=== PATIENT | female | born 2000 | race Two or more races ===

== ENCOUNTER 2023-12-16 12:22 | Emergency (ER) | payer SELFPAY ==
[~2023-12-16] VITALS: Ht 167.6 cm; Wt 58.2 kg
[2023-12-16 12:37] VITALS: BP 134/86; PULSE 98; RESP 18; TEMP 98.4
[2023-12-16] MEDS ORDERED: LEVE10006 PO (12:48)
[2023-12-16] MEDS ORDERED: BUSP15TA3 PO (12:48)
[2023-12-16] MEDS ORDERED: HYDR-4527 PO (12:48)
[2023-12-16 13:56] LABS: ALCOHOL, URINE DRUG SCREEN POSITIVE (NEGATIVE); AMPHET/METH SCREEN,URINE NEGATIVE (NEGATIVE); BARBITURATE SCREEN, URINE NEGATIVE (NEGATIVE); BENZODIAZEPINES SCREEN,URINE NEGATIVE (NEGATIVE); CANNABINOID SCREEN,URINE NEGATIVE (NEGATIVE); COCAINE SCREEN,URINE NEGATIVE (NEGATIVE); METHADONE SCREEN, URINE NEGATIVE (NEGATIVE); OPIATE SCREEN,URINE NEGATIVE (NEGATIVE); PHENCYCLIDINE SCREEN,URINE NEGATIVE (NEGATIVE)
[2023-12-16] MEDS: LevETIRAcetam 1,000 MG in DEXTROSE 5%-WATER 100 ML IV ONE (14:31)
[2023-12-16 14:41] LABS: BASOPHILS % (AUTO) 1.1 % (0.0-2.0); EOSINOPHILS % (AUTO) 0.3 % (1.0-6.0); HEMATOCRIT 46.4 % (36-46); HEMOGLOBIN 15.6 g/dL (12.0-16.0); LYMPHOCYTES # (AUTO) 1.8 K/uL (1.0-4.8); LYMPHOCYTES % (AUTO) 46.4 % (22.0-44.0); MEAN CORPUSCULAR HEMOGLOBIN 33.3 pg (26.0-34.0); MEAN CORPUSCULAR HGB CONC 33.5 G/dL (31.0-37.0); MEAN CORPUSCULAR VOLUME 99 fL (80-100); MONOCYTES # (AUTO) 0.5 K/uL (0.1-1.0); MONOCYTES % (AUTO) 12.5 % (2.0-9.0); NEUTROPHILS # (AUTO) 1.5 K/uL (1.8-7.7); NEUTROPHILS % (AUTO) 39.7 % (40.0-70.0); PLATELET COUNT (AUTO) 183 K/uL (150-450); RED BLOOD CELL COUNT(AUTO) 4.67 MIL/uL (4.00-5.20); RED CELL DISTRIBUTION WIDTH 13.3 % (11.5-14.5); WHITE BLOOD COUNT (AUTO) 3.8 K/uL (4.5-11.0)
[2023-12-16 14:51] LABS: ANION GAP 9 mmol/L (8-16); CALCIUM, TOTAL 8.7 mg/dL (8.8-10.5); CARBON DIOXIDE 28 mmol/L (22-29); CHLORIDE 108 mmol/L (98-107); CREATININE 0.67 mg/dL (0.60-1.30); GLOMERULAR FILTR. RATE CALC > 60 mL/min (>60); GLUCOSE,RANDOM 87 mg/dL (70-110); POTASSIUM 3.8 mmol/L (3.5-5.1); SODIUM SERUM 145 mmol/L (136-145); UREA NITROGEN, BLOOD 4 mg/dL (7-18)
[2023-12-16 14:56] LABS: ALCOHOL, BLOOD (SERUM) 352 mg/dL (0-10)
[2023-12-16 14:57] LABS: ALANINE AMINOTRANSFERASE 231 U/L (12-78); ALKALINE PHOSPHATASE 60 U/L (46-116); ASPARTATE AMINOTRANSFERASE 154 U/L (15-37); BILIRUBIN,TOTAL 0.4 mg/dL (0.1-1.0); TOTAL PROTEIN, SERUM 7.8 g/dL (6.4-8.2)
[2023-12-16 14:59] LABS: TROPONIN I-HIGH SENSITIVITY Less Than 4 ng/L (<51)
[2023-12-16 15:58] LABS: COVID AG,FIA SOURCE NASAL SWAB
[2023-12-16 16:50] LABS: SARS-COV2 (COVID) ANTIGEN,FIA Negative (Negative)
== END 2023-12-16 17:07 | disposition home or self-care (01) ==
LOC: EMS 12:22
DX: F10.129 Alcohol abuse with intoxication, unspecified (principal); F20.9 Schizophrenia, unspecified; Z20.822 Contact with and (suspected) exposure to COVID-19
CPT/HCPCS: 99285; 70450; 96365; 71045; 87426; 80053; 84484; 84703; 85025; 36415; 70486; 72125; 93005; 80307; J0712; G0480; J7060

== ENCOUNTER 2024-01-26 10:05 | Emergency (ER) | payer MEDICAID, SELFPAY ==
[~2024-01-26] VITALS: Ht 162.6 cm; Wt 56.8 kg
[~2024-01-26 10:05] MED LIST: BUSP15TA3 PO; HYDR-4527 PO; LEVE10006 PO
[2024-01-26 10:24] VITALS: TEMP 98.3
[2024-01-26] MEDS: ACETAMINOPHEN/CODEINE 300-30 MG TABLET PO ONE (13:14)
[2024-01-26] MEDS: DiphenhydrAMINE HCL 25 MG CAPSULE PO ONE (13:14)
[2024-01-26] MEDS: IBUPROFEN 600 MG TABLET PO ONE (13:14)
[2024-01-26] MEDS: CEPHALEXIN MONOHYDRATE 500 MG CAPSULE PO ONE (13:14)
[2024-01-26] MEDS ORDERED: DOXY-354 PO (13:33)
[2024-01-26] MEDS ORDERED: ACET-2080 PO (13:33)
[2024-01-26] MEDS ORDERED: DIPH50CA37 PO (13:33)
[2024-01-26] MEDS ORDERED: CEPH-558 PO (13:33)
[2024-01-26] MEDS ORDERED: IBUP-1554 PO (13:33)
[2024-01-26 14:00] VITALS: BP 115/60; PULSE 75; RESP 18
[2024-01-26] MEDS ORDERED: LEVE1000 PO (14:03)
== END 2024-01-26 14:10 | disposition home or self-care (01) ==
LOC: EMS 10:05
DX: S80.862A Insect bite (nonvenomous), left lower leg, initial encounter (principal); L03.116 Cellulitis of left lower limb; F20.9 Schizophrenia, unspecified; W57.XXXA Bitten or stung by nonvenomous insect and other nonvenomous arthropods, initial encounter; Y93.89 Activity, other specified; Y92.89 Other specified places as the place of occurrence of the external cause; Y99.8 Other external cause status
CPT/HCPCS: 99284; Z7502; Z7610